=== PATIENT | male | born 1990 | race Two or more races ===

== ENCOUNTER 2020-07-11 17:28 | Emergency (ER) | payer OTHER ==
[~2020-07-11] VITALS: Ht 182.9 cm; Wt 105.2 kg
--- NOTE | 2020-07-11 17:38 | NUR ---
BIB [facility] C/O ALOC SP FENTANYL OVERDOSE 8MG NARCAN GIVEN IN FIELD, TO ER BED 15, HOOKED TO PNEUMATIC PRESS HAND, BP CUFF AND POX. PATIENT NOTED TO WAKE UP MOMENTARILY THEN GOES BACK TO SLEEP. WARM BLANKET PROVIDED, NAD NOTED. 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
[2020-07-11] MEDS ORDERED: NALOXONE PREFILLED SYRINGE 2 MG/2 ML SYRINGE ONE (17:58)
[2020-07-11] MEDS ORDERED: NALOXONE HCL 4 MG in IV NS 0.9% 240 ML IV PRN (18:00)
[2020-07-11 18:03] LABS: BASOPHILS % (AUTO) 0.3 % (0.0-2.0); EOSINOPHILS % (AUTO) 0.4 % (0.0-6.0); HEMATOCRIT 43 % (39-51); HEMOGLOBIN 14.6 g/dL (13.5-17.5); LYMPHOCYTES # (AUTO) 1.9 /CMM (0.8-4.8); LYMPHOCYTES % (AUTO) 14.2 % (20.0-44.0); MEAN CORPUSCULAR HGB CONC 34 g/dl (31.0-36.0); MEAN CORPUSCULAR VOLUME 86 fL (80-96); MONOCYTES # (AUTO) 0.9 /CMM (0.1-1.30); MONOCYTES % (AUTO) 6.6 % (2.0-12.0); NEUTROPHILS # (AUTO) 10.6 /CMM (1.8-8.9); NEUTROPHILS % (AUTO) 78.5 % (43.0-81.0); PLATELET COUNT (AUTO) 254 /CMM (150-450); RED BLOOD CELL COUNT(AUTO) 4.99 MIL/uL (4.5-6.0); WHITE BLOOD COUNT (AUTO) 13.4 K/uL (4.3-11.0)
[2020-07-11] MEDS: IV NS 0.9% 1,000 ML BAG IV ONE (18:03)
[2020-07-11] MEDS: NALOXONE PREFILLED SYRINGE 2 MG/2 ML SYRINGE IV ONE (18:05)
[2020-07-11 18:17] LABS: ALBUMIN 4.2 g/dL (3.4-5.0); BILIRUBIN,DIRECT 0.1 mg/dL (0.0-0.2); BILIRUBIN,TOTAL 0.6 mg/dL (0.2-1.0); CALCIUM, SERUM 9.6 mg/dL (8.5-10.1); CREATININE 1.2 mg/dL (0.6-1.3); POTASSIUM 4.2 mmol/L (3.5-5.1); TOTAL PROTEIN, SERUM 8.1 g/dL (6.4-8.2)
--- NOTE | 2020-07-11 18:36 | NUR ---
PATIENT OPENS EYES, JUST STARES WHEN SPOKEN TO.
--- NOTE | 2020-07-11 18:48 | NUR ---
EPISODE OF VOMITING NOTED. MADE INDUSTRIAL STAFF NURSE DEGRASSE AWARE
[2020-07-11] MEDS ORDERED: ONDANSETRON HCL/PF 4 MG/2 ML VIAL ONE (18:49)
[2020-07-11] MEDS: ONDANSETRON HCL/PF 4 MG/2 ML VIAL IV ONE (18:54)
--- NOTE | 2020-07-11 19:20 | NUR ---
REPORT GIVEN TO THOM GILLILAND FOR IVAN
--- NOTE | 2020-07-11 20:40 | NUR ---
PATIENT AMBULATORY WITH A STEADY GAIT TO THE RESTROOM. PATIENT CALLED SUZETTE (FRIEND) TO COME PICK HIM UP.
--- NOTE | 2020-07-11 21:01 | NUR ---
IV removed. Catheter intact and site benign. Pressure and 4x4 applied to site. No bleeding noted.
--- NOTE | 2020-07-11 21:24 | NUR ---
Patient discharged to home in stable condition. Written and verbal after care instructions given. Patient verbalizes understanding of instruction.
--- NOTE | 2020-07-11 21:44 | NUR ---
Patient picked up by friend, Ruben.
[2020-07-11 21:48] VITALS: BP 116/73
== END 2020-07-11 21:08 | disposition home or self-care (01) ==
LOC: ER 17:32
DX: T40.2X1A Poisoning by other opioids, accidental (unintentional), initial encounter (principal); F17.200 Nicotine dependence, unspecified, uncomplicated; Y92.89 Other specified places as the place of occurrence of the external cause
CPT/HCPCS: 36415; 71045; 80048; 80076; 80299; 80320; 85025; 96361; 96374; 96375; 99285; 99406; J2310; J2405; J7030; G0480